=== PATIENT | female | born 1965 ===

== ENCOUNTER 2017-12-01 10:33 | Emergency (ER) | payer MEDICAID ==
[~2017-12-01] VITALS: Ht 160 cm; Wt 77.1 kg
[2017-12-01 10:40] VITALS: Ht 160 cm; Wt 77.1 kg
[2017-12-01 15:01] VITALS: BP 115/65
== END 2017-12-01 15:01 | disposition home or self-care (01) ==
LOC: ED 10:33
DX: M54.32 Sciatica, left side (principal); I10 Essential (primary) hypertension; E11.9 Type 2 diabetes mellitus without complications
CPT/HCPCS: J2270; Q0162